=== PATIENT | male | born 1990 | race Caucasian/White ===

== ENCOUNTER 2017-04-28 17:08 | Emergency (ER) | payer SELFPAY ==
[~2017-04-28] VITALS: Ht 175.3 cm; Wt 90.3 kg
[2017-04-28 17:09] VITALS: BP 146/99
== END 2017-04-28 19:38 | disposition home or self-care (01) ==
LOC: ED 18:55
DX: J00 Acute nasopharyngitis [common cold] (principal); Z87.891 Personal history of nicotine dependence
CPT/HCPCS: 99283

== ENCOUNTER 2017-05-08 20:54 | Emergency (ER) | payer SELFPAY ==
[~2017-05-08] VITALS: Ht 172.7 cm; Wt 90.0 kg
[2017-05-08 20:55] VITALS: BP 153/97
== END 2017-05-09 00:55 | disposition home or self-care (01) ==
LOC: ED 22:46
DX: R51 Headache (principal); Z87.891 Personal history of nicotine dependence; Z98.890 Other specified postprocedural states
CPT/HCPCS: 70486; 99284